=== PATIENT | female | born 1975 | race Caucasian/White ===

== ENCOUNTER 2019-06-09 15:31 | Emergency (ER) | payer OTHER, SELFPAY ==
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
[2019-06-09 16:10] VITALS: BP 149/102; PULSE 98; RESP 18; TEMP 37.4; O2SAT 100
[2019-06-09 16:15] VITALS: BP 149/109; PULSE 94; RESP 16; TEMP 37.4; O2SAT 100
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
== END 2019-06-09 18:49 | disposition home or self-care (01) ==
PROVIDERS: Emergency Provider Emergency Medicine; PCP Family Medicine
DX: S29.9XXA Unspecified injury of thorax, initial encounter (principal); S19.9XXA Unspecified injury of neck, initial encounter; M47.812 Spondylosis without myelopathy or radiculopathy, cervical region; M47.814 Spondylosis without myelopathy or radiculopathy, thoracic region; V49.40XA Driver injured in collision with unspecified motor vehicles in traffic accident, initial encounter
CPT/HCPCS: 72125; 72128; 81025; 99284

== ENCOUNTER 2020-06-25 08:17 | Outpatient (CLI) | payer OTHER, SELFPAY ==
--- NOTE | ~2020-06-25 | MM_ITS ---
EXAMINATION: MM screening [facility] BI w selena HISTORY: Screening mammogram TECHNIQUE: Craniocaudal and mediolateral oblique 3-D tomosynthesis images were obtained and synthetic 2-D images were generated. CAD analysis was submitted and interpreted. COMPARISON: 03/23/2019, 03/17/2018, 03/09/2018, 01/18/2017 BREAST PARENCHYMAL COMPOSITION: The breasts are heterogeneously dense, which may obscure small masses . FINDINGS: There is no evidence of suspicious mass, calcification, or architectural distortion to sugg est malignancy in either breast. There has been no suspicious interval change. IMPRESSION: 1. No mammographic evidence of malignancy. 2. Recommend routine screening mammography in one year. BI-RADS Category 1: Negative Reviewed, dictated and finalized at location A. PROCESSING AUDITOR
== END 2020-06-25 08:18 | disposition home or self-care (01) ==
LOC: ANHIMG 08:22
PROVIDERS: PCP Family Medicine; Visit Provider Obstetrics & Gynecology
DX: Z12.31 Encounter for screening mammogram for malignant neoplasm of breast (principal)
CPT/HCPCS: 77063; 77067

== ENCOUNTER 2021-05-26 09:34 | Outpatient (CLI) | payer OTHER, SELFPAY ==
--- NOTE | ~2021-05-26 | US_ITS ---
EXAMINATION: US pelvic complete w TV DATE: 05/26/2021 10:37 INDICATION: Abnormal uterine bleeding. Evaluate IUD placement. Comparison:No prior studies for comparison. TECHNIQUE: Multiple transabdominal and endovaginal sonographic images of the pelvis performed. FINDINGS: The uterus measures 7.9 x 3.9 x 5.7 cm. There is an IUD present in the endometrium. The end ometrial complex measures 9 mm. There are multiple nabothian cysts. The right ovary measures 3.8 x 2 x 1.9 cm and the left ovary measures 2.6 x 1.3 x 1.5 cm. There are r ight ovarian cysts, largest measuring 2.3 cm. Normal doppler signal in both ovaries. There is no free fluid in the pelvis. There are no abnormal masses seen on either side. IMPRESSION: 1. Simple cyst of the right ovary measuring up to 2.3 cm. 2: IUD in expected position in the endometrium. Reviewed, dictated and finalized at location B. ATIONS LEADER
== END 2021-05-26 09:35 | disposition home or self-care (01) ==
LOC: ANHIMG 09:37
PROVIDERS: Visit Provider Nurse Practitioner
DX: N93.8 Other specified abnormal uterine and vaginal bleeding (principal); N83.201 Unspecified ovarian cyst, right side; Z97.5 Presence of (intrauterine) contraceptive device
CPT/HCPCS: 76830; 76856

== ENCOUNTER 2021-07-25 09:17 | Outpatient (CLI) | payer OTHER, SELFPAY ==
--- NOTE | ~2021-07-25 | MM_ITS ---
EXAMINATION: MM screening [facility] BI w selena HISTORY: Screening TECHNIQUE: Craniocaudal and mediolateral oblique 3-D tomosynthesis images were obtained and synthetic 2-D images were generated. CAD analysis was submitted and interpreted. COMPARISON: Comparison to multiple prior studies sequentially, with oldest reviewed study dated 01/18. BREAST PARENCHYMAL COMPOSITION: The breasts are heterogeneously dense, which may obscure small masses . FINDINGS: There is no evidence of suspicious mass, calcification, or architectural distortion to sugg est malignancy in either breast. There has been no suspicious interval change. IMPRESSION: 1. No mammographic evidence of malignancy. 2. Recommend routine screening mammography in one year. BI-RADS Category 1: Negative Reviewed, dictated and finalized at location A.
== END 2021-07-25 09:18 | disposition home or self-care (01) ==
LOC: ANHIMG 09:19
PROVIDERS: Visit Provider Nurse Practitioner
DX: Z12.31 Encounter for screening mammogram for malignant neoplasm of breast (principal)
CPT/HCPCS: 77063; 77067

== ENCOUNTER 2023-02-04 08:51 | Outpatient (CLI) | payer OTHER, SELFPAY ==
--- NOTE | ~2023-02-04 | MM_ITS ---
EXAMINATION: MM screening [facility] BI w selena HISTORY: Screening mammogram TECHNIQUE: Craniocaudal and mediolateral oblique 3-D tomosynthesis images were obtained and synthetic 2-D images were generated. CAD analysis was submitted and interpreted. COMPARISON: 07/25/2021, 06/25/2020, 03/23/2019 BREAST PARENCHYMAL COMPOSITION: The breasts are heterogeneously dense, which may obscure small masses . FINDINGS: RIGHT BREAST: No suspicious mass, calcification, or architectural distortion are identified to sugges t malignancy. There has been no suspicious interval change. LEFT BREAST: There is an asymmetry in the middle third of the slightly lower breast 3 cm from the nip ple on the mediolateral oblique view. IMPRESSION: 1. Left breast asymmetry. 2. Additional mammographic views and possible breast ultrasound are recommended. BI-RADS Category 0: Incomplete: Needs additional imaging evaluation. Reviewed, dictated and finalized at location A. IMPRESSION: 1. Left breast asymmetry. 2. Additional mammographic views and possible breast ultrasound are recommended . BI-RADS Category 0: Incomplete: Needs additional imaging evaluation.
== END 2023-02-04 08:52 | disposition home or self-care (01) ==
PROVIDERS: Visit Provider Nurse Practitioner
DX: Z12.31 Encounter for screening mammogram for malignant neoplasm of breast (principal); R92.8 Other abnormal and inconclusive findings on diagnostic imaging of breast
CPT/HCPCS: 77063; 77067

== ENCOUNTER 2023-03-08 12:15 | Outpatient (CLI) | payer OTHER, SELFPAY ==
--- NOTE | ~2023-03-08 | MMUS_ITS ---
EXAMINATION: MM diagnostic [facility] LT w selena, US breast LT limited HISTORY: Follow-up left breast asymmetry TECHNIQUE: Additional 3-D tomosynthesis images of the left breast were performed and synthetic 2-D im ages were generated. CAD analysis was submitted and interpreted. High resolution Limited left breast ultrasound was performed. COMPARISON: Comparison to multiple prior studies sequentially, with oldest reviewed study dated 03/03. BREAST PARENCHYMAL COMPOSITION: Breast composed of scattered areas of fibroglandular density FINDINGS: MAMMOGRAPHIC FINDINGS: There are no suspicious masses, calcifications or architectural distortion in the left breast to sugg est malignancy. Focal asymmetry inferiorly in the left breast on MLO view is not apparent on spot com pression views. ULTRASOUND: Limited left breast ultrasound: At 3:00, 3 cm from the nipple there is a 1 cm cyst. No suspicious mas ses are identified in the left breast to suggest malignancy. IMPRESSION: 1. No evidence for malignancy in the left breast. Benign finding. 2. Routine yearly screening mammogram and regular clinical breast examination are recommended. BI-RADS Category 2: Benign finding(s). Reviewed, dictated and finalized at location A. IC COATING SUPERVISOR IMPRESSION: 1. No evidence for malignancy in the left breast. Benign finding. 2. Routine yearly screening mammogram and regular clinical breast examination a re recommended. BI-RADS Category 2: Benign finding(s).
== END 2023-03-08 12:16 | disposition home or self-care (01) ==
PROVIDERS: Visit Provider Obstetrics & Gynecology Gynecology
DX: R92.8 Other abnormal and inconclusive findings on diagnostic imaging of breast (principal)
CPT/HCPCS: 76642; 77061; 77065; G0279

== ENCOUNTER 2024-09-21 14:22 | Outpatient (CLI) | payer BC, SELFPAY ==
--- NOTE | ~2024-09-21 | MM_ITS ---
EXAMINATION: MM screening [facility] BI w selena HISTORY: Screening TECHNIQUE: Craniocaudal and mediolateral oblique 3-D tomosynthesis images were obtained and synthetic 2-D images were generated. CAD analysis was submitted and interpreted. COMPARISON: Comparison to multiple prior studies sequentially, with oldest reviewed study dated 03/04. BREAST PARENCHYMAL COMPOSITION: Dense: The breasts are heterogeneously dense, which may obscure small masses FINDINGS: There is no evidence of suspicious mass, calcification, or architectural distortion to sugg est malignancy in either breast. There has been no suspicious interval change. IMPRESSION: 1. No mammographic evidence of malignancy. 2. Recommend routine screening mammography in one year. BI-RADS Category 1: Negative Reviewed, dictated and finalized at location B.
--- OUTSIDE RECORDS SUMMARY | 2024-09-21 14:26 | XMS_ITS | Clinical Summary ---
Author Organization [facility] Address [address] [place] [address] Care Team Providers Care Air Director Name Role Phone Salvador Gutierrez MD Primary Care Provider Source Comments [facility],non-owned Affiliates and Associated Physician Practices is amultiple site organization consisting of ambulatory clinics and hospital sitesin [place] and [place]. This disclosure is being madepursuant to the Care Everywhere program and may not contain all information available regarding this patient. Last updated 18.[employer] [facility] Allergies No known active allergies Medications * Be aware that medications may not be up to date on this document. Alwaysverify current medications with the patient. levonorgestrel (MIRENA, 52 MG,) 20 MCG/24HR IUD 1 device by Intrauterine route as directed Active Family History Medical History Relation Name Comments Diabetes Father Hypertension Father Relation Name Status Comments Father Social History Tobacco Use Types Packs/Day Years Used Date Smoking Tobacco: Never Tobacco Cessation:Counseling Given: No Alcohol Use Standard Drinks/Week Comments No 0 (1 standard drink = 0.6 oz pur e alcohol) Comments No Sex and Gender Information Value Date Recorded Sex Assigned at Not on file Legal Sex Female 10:08 AM OPTICIAN MANAGER Gender Identity Not on file Sexual Orientation Not on file Last Filed Vital Signs Vital Sign Reading Time Taken Comments Blood Pressure 124/80 04/23/2017 12:31 PM OPTICIAN MANAGER Pulse 97 04/23/2017 12:31 PM OPTICIAN MANAGER Temperature 38.8 C (101.8 F) 04/23/2017 12:31 PM OPTICIAN MANAGER Respiratory Rate 20 06/20/2016 10:24 AM OPTICIAN MANAGER Oxygen Saturation 99% 06/20/2016 10:24 AM OPTICIAN MANAGER Inhaled Oxygen Concentration - - Weight 86.2 kg (190 lb) 04/23/2017 12:31 PM OPTICIAN MANAGER Height 167.6 cm (5' 6 ) 04/23/2017 12:31 PM OPTICIAN MANAGER Body Mass Index 30.67 04/23/2017 12:31 PM OPTICIAN MANAGER Plan of Treatment Health Maintenance Due Date Last Done Comments COLOGUARD (AGES 45-75) - COL ON CA SCREENING 1976 COLON MONITORING 1976 COLONOSCOPY - COLON CA SCREENING 1976 CT COLONOGRAPHY - COLON CA SCREENING 1976 Colorectal Cancer Screening 1976 FIT - COLON CA SCREENING 1976 FLEX SIG - COLON CA SCREENING 1976 LIPID TESTING 1976 MAMMOGRAM 1976 HIV SCREENING 01/07/1991 HEPATITIS C SCREENING 01/03/1994 DTAP/TDAP/TD VACCINES (1 - Tdap) 01/07/1995 HEPATITIS B VACCINE (1 of 3 - 19+ 3-dose series) 01/07/1995 SCREENING FOR DIABETES 04/23/2017 COVID-19 VACCINE (1 - 2023-2 5 season) 2024 DEPRESSION SCREENING 05/03/2024 INFLUENZA VACCINE (Season Ended) 2025 ZOSTER VACCINE (1 of 2) 01/07/2026 HIB VACCINE Aged Out No longer eligi ble based on patient's age to complete this topic HPV VACCINE Aged Out No longer eligi ble based on patient's age to complete this topic MENINGOCOCCAL (Group B) VACC INE SHARED DECISION-MAKING Aged Out No longer eligibl e based on patient's age to complete this topic MENINGOCOCCAL GROUPS A/C/Y/W VACCINE Aged Out No longer eligible b ased on patient's age to complete this topic PNEUMOCOCCAL VACCINE Aged Out No long er eligible based on patient's age to complete this topic Insurance ISAIAH Care Teams Air Director Relationship Specialty Start Date End Date Salvador Gutierrez MD [address] [place] [address] PCP - General Family Medicine 06/20/16
--- OUTSIDE RECORDS SUMMARY | 2024-09-21 14:26 | XMS_ITS | Clinical Summary ---
Author Organization [facility] Care Team Providers Care Ceramic Mold Designer Name Role Phone Unavailable Primary Care Provider Unavailabl e Social History Tobacco Use Types Packs/Day Years Used Date Smoking Tobacco: Never Assessed Comments Unknown Sex and Gender Information Value Date Recorded Sex Assigned at Not on file Legal Sex Female 10:54 AM RN RELIEF CHARGE Gender Identity Not on file Sexual Orientation Not on file Plan of Treatment Health Maintenance Due Date Last Done Comments Hepatitis C Virus (HCV) Screening 1976 TdaP Immunization 1976 Hepatitis B Immunization (1 of 3 - 19+ 3-dose series) 01/07/1995 Pap Smear 01/07/1997 Cervical Cancer Screening (CCS) 01/07/2006 HPV/Cotest 01/07/2006 Discussion re Starting/Frequ ency of Mammograms 2016 Colonoscopy 01/07/2021 Colorectal Cancer Screening 01/07/2021 Influenza Immunization (#1) 2024 SARS-COV-2 Immunization ( season) 2024 Respiratory Syncytial Virus (RSV) Immunization (Adult) (1 - 1-dose 75+ series) 01/07/2051 Meningococcal Immunization (ACWY) Aged Out No longer eligible based on patient's age to complete this topic Pneumococcal Immunization Combined Aged Out No longer eligible based on patient's age to complete this topic Rotavirus Immunization Aged Out No lo nger eligible based on patient's age to complete this topic
--- OUTSIDE RECORDS SUMMARY | 2024-09-21 14:26 | XMS_ITS | Encounter Summary ---
Author Organization [facility] Address [address] [place] [address] Care Team Providers Care Lean Consultant Name Role Phone Salvador Gutierrez MD Primary Care Provider + [phone] Reason for Visit * Reason Onset Date Comments Suture Removal 01/05/2019 Encounter Details Date Type Department Care Team (Late st Contact Info) Description 01/05/2019 Telephone [facility] Breast Surgery [address] [address] Stephanie Kingston DO NO ADDRESS ON FILE Suture Removal Social History Tobacco Use Types Packs/Day Years Used Date Smoking Tobacco: Never Smokeless Tobacco: Never Alcohol Use Standard Drinks/Week Comments Yes 0 (1 standard drink = 0.6 oz pur e alcohol) occasional Comments No Sex and Gender Information Value Date Recorded Sex Assigned at Not on file Legal Sex Female 1: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 She was wondering if she needed to have it removed right away or can wait until next week. I asked her if it was bothering her or red. She stated it was not bothering her, but it was a little red, and she would feel more comfortable if it was removed so she could apply the hydrocortisone cream to the rash below it. We scheduled an appointment for it to be removed today. * Telephone Encounter - Charisma Davison - 01/05/2019 8:56 AM CDT Pt feels one suture still left from removal yesterday near rash. Has appt next week; should it be removed before next week? documented in this encounter Plan of Treatment Not on file documented as of this encounter Visit Diagnoses Not on filedocumented in this encounter Care Teams Lean Consultant Relationship Specialty Start Date End Date Salvador Gutierrez MD [address] [place] [address] PCP - General Family Practice 03/28/18 documented as of this encounter
--- OUTSIDE RECORDS SUMMARY | 2024-09-21 14:26 | XMS_ITS | Clinical Summary ---
Author Organization [facility] Address [address] [place] [address] Care Team Providers Care Metal Machinist Name Role Phone Salvador Gutierrez MD Primary Care Provider + [phone] Allergies No known active allergies Medications levonorgestrel (MIRENA) 20 mcg/24 hours (5 yrs) 52 mg IUD 1 Device by Intrauterine route. 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 Resolved Problems Problem Noted Date Diagnosed Date Resolved Date Abnormal ultrasound of breast 03/29/2018 08/18/2018 Abnormal mammogram of left breast 03/29/2018 08/18/2018 Lump of left breast 03/29/2018 08/19/19 19 Social History Tobacco Use Types Packs/Day Years Used Date Smoking Tobacco: Never Smokeless Tobacco: Never Alcohol Use Standard Drinks/Week Comments Yes 0 (1 standard drink = 0.6 oz pur e alcohol) occasional Comments No Sex and Gender Information Value Date Recorded Sex Assigned at Not on file Legal Sex Female 1:42 PM SUPERVISOR FINISH END Gender Identity Not on file Sexual Orientation Not on file Last Filed Vital Signs Vital Sign Reading Time Taken Comments Blood Pressure 122/95 01/24/2019 4:08 PM CDT Pulse 70 01/24/2019 4:08 PM CDT Temperature 37.1 C (98.7 F) 01/24/2019 4:08 PM CDT Respiratory Rate - - Oxygen Saturation 98% 01/24/2019 4:08 PM CDT Inhaled Oxygen Concentration - - Weight 92.9 kg (204 lb 11.2 oz) 01/24/2019 4:08 PM CDT Height 170.2 cm (5' 7 ) 01/24/2019 4:08 PM CDT Body Mass Index 32.06 01/24/2019 4:08 PM CDT Plan of Treatment Health Maintenance Due Date Last Done Comments DTAP/TDAP/TD VACCINES (1 - Tdap) 01/07/1995 HEPATITIS B VACCINES (1 of 3 - 19+ 3-dose series) 01/07/1995 HPV/Cotest (21-29) 01/07/1997 CERVICAL CANCER SCREENING 01/07/2006 HPV/Cotest (30-65) 01/07/2006 PAP SMEAR 01/07/2006 BREAST CANCER SCREENING 04/05/2019 04/05/20 18, 03/17/2018, 03/09/2018, Additional history exists COLORECTAL SCREENING 01/07/2021 Colorectal Cancer Screening 01/07/2021 FIT-DNA Q 3 years 01/07/2021 FIT/FOBT Q 1 year 01/07/2021 Flex Sig/CT Colonography Q 5 years 01/07/2021 INFLUENZA VACCINE (#1) 2023 Procedures Procedure Name Priority Date/Time Associated Diagnosis Comments MAMMO DIAG UNI LEFT 3D FABIO W OR WO CAD Routine 04/05/2018 Abnormal ultrasound of breast Abnormal mammogram of left breast from Last 3 Months or Most Recently Relevant to Health Maintenance Results * MAMMO DIAG UNI LEFT 3D FABIO W OR WO CAD (04/05/2018) Anatomical Region Laterality Modality Breast Left Mammography Stephanie Kingston DO MAMMO ORDERABLES Final Resu lt from Last 3 Months or Most Recently Relevant to Health Maintenance Insurance Care Teams Metal Machinist Relationship Specialty Start Date End Date Salvador Gutierrez MD [address] [place] [address] PCP - General Family Practice 03/28/18
== END 2024-09-21 14:23 | disposition home or self-care (01) ==
LOC: ANHIMG 14:24
PROVIDERS: Visit Provider Nurse Practitioner
DX: Z12.31 Encounter for screening mammogram for malignant neoplasm of breast (principal)
CPT/HCPCS: 77063; 77067